=== PATIENT | female | born 1980 | race Caucasian/White ===

== ENCOUNTER 2024-09-05 06:29 | Day surgery (SDC) | payer OTHER ==
[2024-09-05] MEDS ORDERED: fentaNYL 100 MCG/2 ML SDV ONE (06:54)
[2024-09-05] MEDS: Dextrose 5%-0.45% NaCl 1,000 ML IV SCH (06:54)
[2024-09-05] MEDS ORDERED: fentaNYL 100 MCG/2 ML SDV IV ONE (06:54)
[2024-09-05] MEDS ORDERED: Midazolam 1 MG/ML 2 ML SDV IV ONE (06:54)
[2024-09-05] MEDS ORDERED: Midazolam 1 MG/ML 2 ML SDV ONE (06:54)
[2024-09-05] MEDS: fentaNYL 100 MCG/2 ML SDV IV ONE ×6 (07:13→07:28)
[2024-09-05] MEDS: Midazolam 1 MG/ML 2 ML SDV IV ONE ×6 (07:14→07:18)
== END 2024-09-05 08:43 | disposition home or self-care (01) ==
LOC: DL.ENDO 06:29 → EDBD 07:30 → DL.ENDO 08:43
PROVIDERS: ATTEND Internal Medicine Gastroenterology
DX: K64.8 Other hemorrhoids (principal); K52.9 Noninfective gastroenteritis and colitis, unspecified; K64.4 Residual hemorrhoidal skin tags
CPT/HCPCS: 81025; J2250; J3010